=== PATIENT | female | born 1995 ===

== ENCOUNTER 2019-08-30 10:55 | Emergency (ER) | payer SELFPAY ==
[~2019-08-30] VITALS: Ht 144.8 cm; Wt 70.7 kg
[2019-08-30 12:06] LABS: COLLECTION METHOD CLEAN CATCH
[2019-08-30 12:10] LABS: BASO % 0.7 % (0.0-2.0); EOS # 0.2 (0.0-0.7); EOS % 2.8 % (0-4.0); GRAN # 3.6 (1.4-6.5); GRAN % 59.4 % (42.2-75.2); HEMATOCRIT 38.7 % (37.0-47.0); HEMOGLOBIN 13.3 g/dl (12.5-16.0); LYMPH # 1.7 (1.2-3.4); LYMPH % 28.5 % (20.0-51.0); MEAN CELL VOLUME 85 fl (80.0-100.0); MEAN CORPUSCULAR HEMOGLOBIN 29 pg (27.0-31.0); MEAN CORPUSCULAR HGB CONC 34 g/dl (33.0-37.0); MEAN PLATELET VOLUME 9.1 fl (7.4-10.4); MONO # 0.5 (0.1-0.6); MONO % 8.3 % (1.7-9.3); PLATELET COUNT 331 K/mm3 (130-400); RED BLOOD COUNT 4.54 M/mm3 (4.10-5.30); REDCELL DISTRIBUTION WIDTH-CV 12.9 % (11.5-14.5)
[2019-08-30 12:12] LABS: MUCOUS Present /lpf; PH 5 (5-8); SQUAMOUS EPITHELIAL 0-2 /hpf; URINE APPEARANCE Clear; URINE BACTERIA None Seen /hpf; URINE BILIRUBIN Negative (NEGATIVE); URINE BLOOD Negative (NEGATIVE); URINE COLOR Yellow; URINE GLUCOSE Negative (NEGATIVE); URINE KETONE Negative (NEGATIVE); URINE LEUKOCYTE ESTERASE Negative (NEGATIVE); URINE NITRATE Negative (NEGATIVE); URINE PROTEIN(semi-quant) Negative (NEGATIVE); URINE RBC 0-2 /hpf; URINE UROBILINOGEN Negative (NEGATIVE)
[2019-08-30 12:25] LABS: ALBUMIN 4.6 gm/dL (3.5-5.0); BILIRUBIN,TOTAL 0.4 mg/dL (0.0-1.0); C-REACTIVE PROTEIN 0.8 mg/dL (0.0-0.9); CALCIUM 9.2 mg/dL (8.4-10.2); CREATININE, serum 0.37 (0.52-1.25); POTASSIUM 4.2 mmol/L (3.4-5.0); TOTAL PROTEIN 7.8 gm/dL (6.4-8.2)
== END 2019-08-30 13:30 | disposition home or self-care (01) ==
LOC: COL.ER 10:55 → EDBD 10:56 → COL.ER 13:30
PROVIDERS: Nurse Practitioner
DX: R10.30 Lower abdominal pain, unspecified (principal); Z32.02 Encounter for pregnancy test, result negative

== ENCOUNTER 2019-11-29 19:07 | Emergency (ER) | payer SELFPAY ==
[~2019-11-29] VITALS: Ht 152.4 cm; Wt 69.5 kg
[2019-11-29 19:17] VITALS: BP 107/66; TEMP 98.6
[2019-11-29 19:50] LABS: BASO % 0.4 % (0.0-2.0); EOS # 0.1 (0.0-0.7); EOS % 1.4 % (0-4.0); GRAN # 4.7 (1.4-6.5); GRAN % 59.3 % (42.2-75.2); HEMATOCRIT 37.9 % (37.0-47.0); HEMOGLOBIN 12.7 g/dl (12.5-16.0); LYMPH # 2.3 (1.2-3.4); LYMPH % 29.7 % (20.0-51.0); MEAN CELL VOLUME 85 fl (80.0-100.0); MEAN CORPUSCULAR HEMOGLOBIN 29 pg (27.0-31.0); MEAN CORPUSCULAR HGB CONC 34 g/dl (33.0-37.0); MEAN PLATELET VOLUME 9.2 fl (7.4-10.4); MONO # 0.7 (0.1-0.6); MONO % 8.8 % (1.7-9.3); PLATELET COUNT 295 K/mm3 (130-400); RED BLOOD COUNT 4.45 M/mm3 (4.10-5.30); REDCELL DISTRIBUTION WIDTH-CV 12.5 % (11.5-14.5)
[2019-11-29 19:54] LABS: COLLECTION METHOD CLEAN CATCH
[2019-11-29 20:01] LABS: PH 5 (5-8); SQUAMOUS EPITHELIAL 0-2 /hpf; URINE APPEARANCE Clear; URINE BACTERIA None Seen /hpf; URINE BILIRUBIN Negative (NEGATIVE); URINE BLOOD Negative (NEGATIVE); URINE COLOR Yellow; URINE GLUCOSE Negative (NEGATIVE); URINE KETONE Negative (NEGATIVE); URINE LEUKOCYTE ESTERASE Negative (NEGATIVE); URINE NITRATE Negative (NEGATIVE); URINE PROTEIN(semi-quant) Negative (NEGATIVE); URINE RBC 0-2 /hpf; URINE UROBILINOGEN Negative (NEGATIVE)
[2019-11-29 20:02] LABS: ALBUMIN 4.2 gm/dL (3.5-5.0); BILIRUBIN,TOTAL 0.7 mg/dL (0.0-1.0); CREATININE, serum 0.53 (0.52-1.25); POTASSIUM 3.8 mmol/L (3.4-5.0); TOTAL PROTEIN 7.4 gm/dL (6.4-8.2)
[2019-11-29] MEDS ORDERED: DOXYCYCLINE 10100 MG PO (22:05)
[2019-11-29 22:54] VITALS: PULSE 75
== END 2019-11-29 22:54 | disposition home or self-care (01) ==
LOC: COL.ER 19:07
PROVIDERS: Emergency Medicine
DX: R10.31 Right lower quadrant pain (principal); R10.32 Left lower quadrant pain; R10.2 Pelvic and perineal pain
CPT/HCPCS: J0696; J1885; J2405; J3010; J7030; Q9967

== ENCOUNTER 2021-11-13 02:25 | Inpatient (IN) | payer SELFPAY ==
[2021-11-13] VITALS (46 sets, daily range): BP systolic 91–147; BP diastolic 49–98; PULSE 56–111; TEMP 97.4–98.3
[~2021-11-13] VITALS: Ht 154.9 cm; Wt 66.4 kg
[~2021-11-13 02:25] MED LIST: DOXYCYCLINE 10100 MG PO
--- NOTE | 2021-11-13 03:56 | NUR ---
RN NOTIFIED REGARDING PT ARRIVING ON THE UNIT WITH COMPLAINTS OF CONTRACTION RATING HER PAIN AN 8 USING THE NUMERICAL SCALE. SVE WAS 2/60/-2 @0257 AND AFTER ONE HOUR EXAM WAS 3/70/-2 @0354. DR. SAENZ SAID TO ADMIT PT.
--- NOTE | 2021-11-13 03:59 | NUR ---
@0240 PATIENT ARRIVED ON THE UNIT VIA AMBULATION WITH SPOUSE.RN USED HOSPITAL EMPLOYEE BENEFITS ATTORNEY IPAD TO SPEAK WITH PATIENT. EMPLOYEE BENEFITS ATTORNEY ID:[id number]. PT AAOX4 WITH COMPLAINTS OF PAIN DURING CONTRACTION.
[2021-11-13 04:48] LABS: BASO % 0.2 % (0.0-2.0); EOS # 0.1 K/mm3 (0.0-0.7); EOS % 0.6 % (0.0-4.0); GRAN # 5.3 K/mm3 (1.4-6.5); GRAN % 63.8 % (42.2-75.2); HEMOGLOBIN 12.6 g/dl (12.5-16.0); LYMPH # 2.3 K/mm3 (1.2-3.4); LYMPH % 27.3 % (20.0-51.0); MEAN CELL VOLUME 87 fl (80.0-100.0); MEAN CORPUSCULAR HEMOGLOBIN 31 pg (27-31); MEAN CORPUSCULAR HGB CONC 35 g/dl (33.0-37.0); MEAN PLATELET VOLUME 9.1 fl (7.4-10.4); MONO # 0.6 K/mm3 (0.1-0.6); MONO % 7.1 % (1.7-9.3); PLATELET COUNT 265 K/mm3 (130-400); RED BLOOD COUNT 4.11 M/mm3 (4.10-5.30); REDCELL DISTRIBUTION WIDTH-CV 12.2 % (11.5-14.5)
[2021-11-13 05:06] LABS: HEMATOCRIT 35.9 % (37.0-47.0)
--- NOTE | 2021-11-13 06:38 | NUR ---
REPORT GIVEN TO ZAHRAA CONTRERAS RN
--- NOTE | 2021-11-13 07:49 | NUR ---
8626 - RN PHONES DR HERNÁNDEZ, NOTIFIED OF PTS PRESENCE, HISTORY, CTX PATTERN, FHT'S AND CERVICAL EXAM
--- NOTE | 2021-11-13 08:45 | NUR ---
PT REQUESTING SOMETHING FOR PAIN, PREFERS IV PAIN MEDICINE. DR HERNÁNDEZ IN DEPARTMENT, NOTIFIED PT REQUESTIN IV PAIN MEDICINE AND NO CERVICAL CHANGE, ORDER RECEIVED FOR STADOL 1 MG X1 NOW
--- NOTE | 2021-11-13 13:14 | NUR ---
SVE DONE, /1, PT REQUESTING EPIDURAL, LR BOLUS STARTED
--- NOTE | 2021-11-13 13:18 | NUR ---
1135 ROLES OF CERVICAL EXAM AND REQUESTING EPIDURAL 1137 EULALIO MAR [employer] SALES CONSULTANT NOTIFIED PT REQUESTING EPIDURAL
--- NOTE | 2021-11-13 13:31 | NUR ---
1218 T ISABELA SUPERVISOR FUR DRESSING HERE FOR EPIDURAL, SITS UP IN SIDE OF BED FOR EPIDURAL PLACEMENT
--- NOTE | 2021-11-13 14:20 | NUR ---
1234 DOWN TO LEFT SIDE AFTER EPIDURAL
--- NOTE | 2021-11-13 14:36 | NUR ---
1310 STRAIGHT CATHETER WITH 700CC CLEAR YELLOW URINE RETURN, SVE /-1
--- NOTE | 2021-11-13 17:10 | NUR ---
1525 STRAIGHT CATH WITH 200CC URINE OUT, PT FEELING URGE TO PUSH, ROLES IN DEPARTMENT, NOTIFIED PT COMPLETE AND WILL START PUSHING
--- NOTE | 2021-11-13 17:16 | NUR ---
1536 INITIATED PUSHING WITH PT, PUSHING TECHNIQUES INSTRUCTED VIA CHAIRMAN & CHIEF EXECUTIVE OFFICER
--- NOTE | 2021-11-13 17:20 | NUR ---
PT PUSHING WELL WITH CTXS, RN REMAINS AT BEDSIDE COACHING PT 3132 ROLES TO ROOM, LABOR ROOM CONVERTED TO DELIVERY ROOM, CONTINUES TO P [facility] WITH CTXS
--- NOTE | 2021-11-13 17:26 | NUR ---
DELIVERY OF VIABLE FEMALE , SPONTANEOUS CRY PRESENT, TO MOTHERS ABD, DRIED AND STIMULATED. 2ND DEGREE PERINEAL LACERATION AND NEAL URETHRAL LACERATION REPAIRED AFTER LOCAL ANESTHEISA BY DR HERNÁNDEZ
--- NOTE | 2021-11-13 17:54 | NUR ---
SITS UP IN BED HOLDING BABY DENIES ANY NEEDS
--- NOTE | 2021-11-13 18:14 | NUR ---
IV PITOCIN INFUSED, IV CONVERTED TO SALINE LOCK, FLUSHES EASILY
--- NOTE | 2021-11-13 19:38 | NUR ---
@7199 RN ASSESSED PATIENT TO BE AAOX4 IN BED RESTING WITH NO APPARENT SIGN OF DISTRESS. SPOUSE AT THE BEDSIDE BABY IN NURSERY. HOSPITAL PROVIDED INDUSTRIAL RELATIONS ANALYST USED TO COMMUNICATE WITH PT. INDUSTRIAL RELATIONS ANALYST #[id number]. PATIENT WAS EDUCATED ON THE IMPORTANCE OF RECOVERY AND THE PROCESS OF GETTING TO THE BATHROOM FOR NEAL-CARE USING THE NEAL BOTTLE. PATIENT EPIDURAL WAS REMOVED PRIOR TO HER GOING TO THE BATHROOM THE TIP WAS INTACT AND A BAND-AID WAS PLACED ON PT.PT STATED AN UNDERSTANDING AND ALL QUESTIONS WERE ANSWERED. WILL CONTINUE TO MONITOR PT.
--- NOTE | 2021-11-13 21:39 | NUR ---
PATIENT SITTING IN THE BEDSIDE CHAIR HOLDING BABY WHILE TALKING TO SPOUSE. PT EDUCATED ON THE IMPORTANCE OF DRINKING WATER TO STAY HYDRATED AND PT STATES AN UNDERSTANDING. PT PROVIDED TUCKS PAID FOR COMFORT.
[2021-11-14 01:00] VITALS: BP 112/62; PULSE 58; TEMP 97.6
--- NOTE | 2021-11-14 04:11 | NUR ---
@0200 pt states she's not in pain and doesn't want the motrin or tylenol.
--- NOTE | 2021-11-14 06:20 | NUR ---
REPORT GIVEN TO ZAHRAA CONTRERASRN
[2021-11-14 07:45] VITALS: BP 99/47; PULSE 76; TEMP 97
[2021-11-14 16:05] VITALS: BP 94/48; PULSE 73; TEMP 97.7
[2021-11-14 20:00] VITALS: BP 103/61; PULSE 70; TEMP 98.4
[2021-11-15 07:35] VITALS: BP 105/72; PULSE 64; TEMP 97.6
--- NOTE | 2021-11-15 09:08 | NUR ---
Initial visit attempt; Patient sleeping, Construction Trades Contractor left card informing patient of the availability of Spiritual Care at our hospital and offered God's blessings.
[2021-11-15] MEDS ORDERED: IBU800 M1 PO (09:43)
--- NOTE | 2021-11-15 14:52 | NUR ---
1440 - DISMISSED AMBULATORY WITH INFANT AND , ESCORTED BY THIS RN TO POV
== END 2021-11-15 14:40 | disposition home or self-care (01) | DRG 807 ==
LOC: LDRO 02:25 → LDR 04:12 → OB 04:12
PROVIDERS: ADMIT Obstetrics & Gynecology
PROC: 10E0XZZ Delivery of Products of Conception, External Approach (ICD-10-PCS; principal; 2021-11-13)
PROC: 0KQM0ZZ Repair Perineum Muscle, Open Approach (ICD-10-PCS; 2021-11-13)
PROC: 0UQMXZZ Repair Vulva, External Approach (ICD-10-PCS; 2021-11-13)
DX: O70.1 Second degree perineal laceration during delivery (principal); Z37.0 Single live birth; O71.82 Other specified trauma to perineum and vulva; Z3A.39 39 weeks gestation of pregnancy
CPT/HCPCS: J0595; J2590; J2795; J7120